=== PATIENT | female | born 1980 | race Caucasian/White ===

== ENCOUNTER 2018-02-08 14:03 | Emergency (ER) | payer OTHER, MEDICAID ==
[~2018-02-08] VITALS: Ht 167.6 cm; Wt 88.5 kg
[~2018-02-08 14:03] MED LIST: ACETAMINOP160 MG/5 M PO; BACTRIM DS TAB1 EACH PO; CHILD IBUP100 MG/5 M PO; DEPO-ESTRAD5 MG/1 ML IM; KEFLEX250 MG/5 M PO; LIDOCAINE; PAIN PATCH; ZANTAC 15MG/15 MG/ML PO; [UNRECOGNIZED DRUG - OTHER]
[2018-02-08 14:12] VITALS: BP 163/97
[2018-02-08] MEDS ORDERED: MEDROLDOSEPACK PO (14:40)
== END 2018-02-08 14:49 | disposition home or self-care (01) ==
LOC: M.ERS 14:03
DX: J06.9 Acute upper respiratory infection, unspecified (principal); L81.9 Disorder of pigmentation, unspecified; G89.29 Other chronic pain; M54.9 Dorsalgia, unspecified; Z88.0 Allergy status to penicillin; Z90.49 Acquired absence of other specified parts of digestive tract; Z98.890 Other specified postprocedural states

== ENCOUNTER 2020-09-08 19:27 | Emergency (ER) | payer OTHER, MEDICAID ==
[~2020-09-08] VITALS: Ht 162.6 cm; Wt 87.1 kg
[~2020-09-08 19:27] MED LIST changes: +MEDROLDOSEPACK PO
[2020-09-08] MEDS ORDERED: CIPROFLOXIN HC2.5 M1 OTIC ×2 (20:09→20:10)
[2020-09-08 20:23] VITALS: BP 155/80
== END 2020-09-08 20:24 | disposition home or self-care (01) ==
LOC: M.ERS 19:27
DX: H60.92 Unspecified otitis externa, left ear (principal); G89.29 Other chronic pain; Z98.890 Other specified postprocedural states; Z88.0 Allergy status to penicillin; Z90.49 Acquired absence of other specified parts of digestive tract